=== PATIENT | male | born 1980 | race Caucasian/White ===

== ENCOUNTER 2016-12-19 22:06 | Emergency (ER) | payer SELFPAY ==
[2016-12-19 22:12] VITALS: BP 132/82
--- NOTE | 2016-12-19 22:33 | RAD ---
INDICATION: Right rib injury COMPARISON: None TECHNIQUE: An AP portable view obtained at 2215 hours is submitted. FINDINGS: Bones/Soft Tissues: There is a right lateral fifth rib fracture with mild displacement. Cardiomediastinal: The cardiomediastinal silhouette is normal. Lungs: There are no infiltrates. There is no pneumothorax. Pleura: There are no pleural effusions. Other: None IMPRESSION: RIGHT FIFTH RIB FRACTURE. LUNGS CLEAR
--- NOTE | 2016-12-19 22:53 | RAD ---
INDICATION: Right rib fracture on chest x-ray COMPARISON: Chest x-ray same date TECHNIQUE: Multiple views of the ribs were obtained. FINDINGS: Bones: Detailed rib series again shows a mildly displaced right fifth rib fracture and a probable nondisplaced right sixth rib fracture. LUNGS: The lungs are clear. There is no pneumothorax. Pleural spaces: There is no evidence of hemothorax. Other: None IMPRESSION: RIGHT FIFTH RIB FRACTURE AND POSSIBLE NONDISPLACED RIGHT SIXTH RIB FRACTURE.
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
== END 2016-12-19 22:53 ==
LOC: ED 22:06
DX: S22.31XA Fracture of one rib, right side, initial encounter for closed fracture (principal); F10.129 Alcohol abuse with intoxication, unspecified; V49.9XXA Car occupant (driver) (passenger) injured in unspecified traffic accident, initial encounter; Y93.9 Activity, unspecified; Y92.9 Unspecified place or not applicable; Y99.9 Unspecified external cause status
CPT/HCPCS: 71010; 99283

== ENCOUNTER → 2017-07-05 15:04 | Emergency (ER) | payer OTHER ==
[2017-07-05 15:09] VITALS: BP 128/80
[2017-07-05 15:50] LABS: Urine Bilirubin Negative (Negative); Urine Glucose Negative (Negative); Urine Nitrite Negative (Negative)
[2017-07-05 16:10] LABS: Hematocrit 45 % (42-52); Hemoglobin 15.4 g/dl (14.0-18.0); Mean Corpuscular HGB Conc 34 g/dl (31-36); Mean Corpuscular Hemoglobin 32 pg (27-31); Mean Corpuscular Volume 94 fL (80-94); Mean Platelet Volume 8 um3 (7.4-10.4); Red Blood Count 4.82 10^6/ul (4.0-5.4); Red Cell Distribution Width 14 % (10.5-15); White Blood Count 11.5 10^3/ul (3.5-10.8)
--- NOTE | 2017-07-05 16:10 | RAD ---
Indication: Right wrist injury. 3 views of the wrist demonstrates no fracture. No other bone or joint abnormality is identified. IMPRESSION: NO FRACTURE OF THE WRIST IS NOTED.
[2017-07-05 16:13] LABS: Benzodiazepine Urine Screen None Detected (None Detect)
[2017-07-05 16:19] LABS: ALT 23 U/L (7-52); AST 24 U/L (13-39); Albumin 4.9 g/dL (3.2-5.2); Alkaline Phosphatase 57 U/L (34-104); Anion Gap 8 mmol/L (2-11); BUN/Creatinine Ratio 9.6 (8-20); Blood Urea Nitrogen 7 mg/dL (6-24); CO2 Carbon Dioxide 26 mmol/L (22-32); Calcium 9.7 mg/dL (8.6-10.3); Chloride 105 mmol/L (101-111); EGFR African American 154.6 (>60); EGFR Non-African American 120.2 (>60); Glucose 85 mg/dL (70-100); Potassium 3.9 mmol/L (3.5-5.0); Sodium 139 mmol/L (133-145); Total Protein 7.9 g/dL (6.4-8.9)
[2017-07-05 16:45] LABS: Acetaminophen < 15 mcg/mL; Alcohol 121 mg/dL (<10); Salicylate < 2.50 mg/dL (<30)
[2017-07-05 16:46] LABS: TSH (Thyroid Stimulating Horm) 0.79 mcIU/mL (0.34-5.60)
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
== END | disposition home or self-care (01) ==
LOC: ED 15:04
DX: F43.20 Adjustment disorder, unspecified (principal); F17.210 Nicotine dependence, cigarettes, uncomplicated; F41.9 Anxiety disorder, unspecified; S69.91XA Unspecified injury of right wrist, hand and finger(s), initial encounter; X58.XXXA Exposure to other specified factors, initial encounter; Y92.9 Unspecified place or not applicable
CPT/HCPCS: 36415; 80053; 80307; 80320; 80329; 81003; 84443; 85025; 99285; G0480

== ENCOUNTER 2017-11-28 18:34 | Inpatient (IN) | payer SELFPAY ==
[2017-11-28 19:36] LABS: ABS Basophils 0.1 10^3/ul (0-0.2); ABS Eosinophils 0.3 10^3/ul (0-0.6); ABS Lymphocytes 2.5 10^3/ul (1.0-4.8); ABS Monocytes 0.7 10^3/ul (0-0.8); ABS Neutrophils 8.2 10^3/ul (1.5-7.7); ABS Nucleated RBC 0 10^3/ul; Eosinophil % 2.2 % (0-6); Hematocrit 43 % (42-52); Hemoglobin 14.5 g/dl (14.0-18.0); Lymphocyte % 21.4 % (25-47); Mean Corpuscular HGB Conc 34 g/dl (31-36); Mean Corpuscular Hemoglobin 32 pg (27-31); Mean Corpuscular Volume 93 fL (80-94); Mean Platelet Volume 8 um3 (7.4-10.4); Nucleated Red Blood Cells % 0; Platelet Count 231 10^3/ul (150-450); Red Cell Distribution Width 14 % (10.5-15); White Blood Count 11.9 10^3/ul (3.5-10.8)
[2017-11-28 19:51] LABS: EGFR Non-African American 114.8 (>60)
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
[2017-11-29] MEDS ORDERED: Mouth Piece, Nicotine* 1 EACH CARTRIDGE INH SCH (05:30)
[2017-11-29] MEDS ORDERED: Al Hydrox/Mg Hydrox/Simet LIQ* 30 ML UDC PO PRN (05:30)
[2017-11-29] MEDS ORDERED: clonazePAM TAB(*) 1 MG PO PRN (05:30)
[2017-11-29] MEDS ORDERED: Temazepam CAP* 15 MG PO PRN (05:31)
[2017-11-29] MEDS: Vitamin THERAPEUTIC TAB PO SCH (09:12)
[2017-11-29] MEDS: Venlafaxine EXT RELEASE CAP* 75 MG PO SCH (09:12)
[2017-11-29] MEDS: Nicotine Inhaler* 10 MG AMP INH PRN ×2 (09:15→20:24)
[2017-11-29] MEDS: Nicotine GUM* 2 MG PO PRN ×3 (09:15→20:24)
--- NOTE | 2017-11-29 12:01 | PN ---
MHU: Group Therapy Note - Service Type Service Type: [id number] Group Psychotherapy - Cognitive Behavioral Group Therapy ( CBT):Patient was attentive and participatory in CBT programming this morning, and remained in good behavioral control. Patient expressed positive insights regarding relevant treatment interventions and goals.
[2017-11-29] MEDS: Amphetamine MIXED SALT TAB* 10 MG TAB PO SCH (16:09)
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
[2017-11-29] MEDS: clonazePAM TAB(*) 0.5 MG PO PRN (20:24)
[2017-11-30] MEDS: Nicotine GUM* 2 MG PO PRN ×7 (07:56→23:29)
[2017-11-30] MEDS: Amphetamine MIXED SALT TAB* 10 MG TAB PO SCH ×3 (07:57→15:28)
[2017-11-30] MEDS: Nicotine Inhaler* 10 MG AMP INH PRN ×6 (07:57→23:29)
[2017-11-30] MEDS: Vitamin THERAPEUTIC TAB PO SCH (07:57)
[2017-11-30] MEDS: Venlafaxine EXT RELEASE CAP* 75 MG PO SCH (07:57)
[2017-11-30] MEDS: BuPROPion XL* 150 MG TAB.XL PO SCH (07:57)
[2017-11-30] MEDS: clonazePAM TAB(*) 0.5 MG PO PRN (18:27)
[2017-12-01] MEDS: clonazePAM TAB(*) 0.5 MG PO PRN ×2 (01:55→09:09)
[2017-12-01] MEDS: Nicotine Inhaler* 10 MG AMP INH PRN ×8 (04:07→22:00)
[2017-12-01] MEDS: Nicotine GUM* 2 MG PO PRN ×6 (08:04→18:59)
[2017-12-01] MEDS ORDERED: LORazepam TAB(*) 1 MG PO ONE (08:15)
[2017-12-01] MEDS ORDERED: LORazepam TAB(*) 1 MG ONE (08:18)
[2017-12-01] MEDS: Amphetamine MIXED SALT TAB* 10 MG TAB PO SCH ×3 (08:24→15:50)
[2017-12-01] MEDS: Vitamin THERAPEUTIC TAB PO SCH (08:51)
[2017-12-01] MEDS: Venlafaxine EXT RELEASE CAP* 75 MG PO SCH (08:51)
[2017-12-01] MEDS: BuPROPion XL* 150 MG TAB.XL PO SCH (08:52)
--- NOTE | 2017-12-01 16:42 | PN ---
Subjective - Subjective Date of Service: 12/01/17 Service Type: [id number] Hosp care 15 min low complexity Subjective: Sriram reports that he is doing a lot better today overall. Had difficuly falling asleep last night and doesn't want his 4PM Adderall. Denies SI/HI, delusions or hallucinations. Objective - Appearance Appearance: Healthy Appearing Dysmorphic Features: No Hygiene: Normal Grooming: Well Kept - Behavior Psychomotor Activities: Normal Exhibits Abnormal Movement: No - Attitude and Relatedness Attitude and Relatedness: Appropriate Eye Contact: Good - Speech Quality: Unpressured Latencies: Normal Quantity: Appropriate - Mood Patient's Decription of Mood: "Good" - Affect Observed Affect: Good Affect Consistent with: Euthymia - Thought Process Patient's Thought Process: Coherent, Goal Directed Thought Content: No Passive Wish, No Suicidal Planning, No Homicidal Ideation, No Paranoid Ideation - Sensorium Experiencing Hallucinations: No, Sensorium is Clear Type of Hallucinations: Visual: No, Auditory: No, Command: No - Level of Consciousness Level of Consciousness: Alert Orientation: Yes Intact, Yes Orientated to Time, Yes Orientated to Place, Yes Orientated to Person - Impulse Control Impulse Control: Intact - Insight and Judgement Insight and Judgement: Fair - Group Participation Particating in Group Activities: Yes - Medication Management Medication Management Adherence: Yes Assessment - Assessment Merits Inpatient Hospitalization: Consolidate Improvements, Pending Safe DC Plan Plan - Plan Treatment Plan: Name: SRIRAM EM Birthdate: 1980 [id number] Continued Medication Management: Continue Outpt Medication Medications: Current Medications Acetaminophen (Tylenol Tab*) 650 mg PO Q4H PRN PRN Reason: PAIN or TEMP > 101 F Al Hydrox/Mg Hydrox/Simethicone (Maalox Plus*) 30 ml PO Q4H PRN PRN Reason: INDIGESTION Amphetamine/Dextroamphetamine (Adderall Tab*) 20 mg PO 0800,1200,1600 JALEN Last Admin: 12/01/17 15:50 Dose: 20 mg Bupropion HCl (Wellbutrin Xl *) 150 mg PO 0800 JALEN PRN Reason: Protocol Last Admin: 12/01/17 08:52 Dose: 150 mg Clonazepam (Klonopin Tab(*)) 0.5 mg PO BID PRN PRN Reason: ANXIETY Last Admin: 12/01/17 09:09 Dose: 0.5 mg Device (Nicotine Mouth Piece*) 1 each INH .[facility] Last Admin: 11/29/17 09:15 Dose: 1 each Multivitamins (Theragran Tab*) 1 tab PO DAILY [facility] Last Admin: 12/01/17 08:51 Dose: 1 tab Nicotine (Nicotine Inhaler*) 10 mg INH Q2H PRN PRN Reason: CRAVING Last Admin: 12/01/17 15:50 Dose: 10 mg Nicotine Polacrilex (Nicotine Gum*) 2 mg PO Q2H PRN PRN Reason: CRAVING Last Admin: 12/01/17 15:50 Dose: 2 mg Venlafaxine HCl (Effexor Xr Cap*) 225 mg PO DAILY [facility] Last Admin: 12/01/17 08:51 Dose: 225 mg - Discharge Plan Discharge Plan: Drug/Alcohol Rehab
[2017-12-02] MEDS: Nicotine Inhaler* 10 MG AMP INH PRN ×7 (05:37→22:34)
[2017-12-02] MEDS: clonazePAM TAB(*) 0.5 MG PO PRN ×2 (08:20→14:05)
[2017-12-02] MEDS: Vitamin THERAPEUTIC TAB PO SCH (08:20)
[2017-12-02] MEDS: Acetaminophen TAB* 325 MG PO PRN ×2 (08:21→20:18)
[2017-12-02] MEDS: BuPROPion XL* 150 MG TAB.XL PO SCH (08:21)
[2017-12-02] MEDS: Nicotine GUM* 2 MG PO PRN ×5 (08:25→20:17)
[2017-12-02] MEDS: Venlafaxine EXT RELEASE CAP* 75 MG PO SCH (08:25)
[2017-12-02] MEDS: Amphetamine MIXED SALT TAB* 10 MG TAB PO SCH ×3 (08:25→15:23)
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
--- NOTE | 2017-12-02 11:55 | PN ---
MHU: Group Therapy Note - Service Type Service Type: [id number] Group Psychotherapy - Cognitive Behavioral Group Therapy ( CBT):Patient was attentive and participatory in CBT programming this morning, and remained in good behavioral control. Patient expressed positive insights regarding relevant treatment interventions and goals.
[2017-12-02] MEDS ORDERED: traZODone TAB* 50 MG TAB PO PRN (16:45)
[2017-12-02] MEDS ORDERED: Ibuprofen TAB* 600 MG PO PRN (20:25)
[2017-12-02] MEDS ORDERED: Ibuprofen TAB* 600 MG ONE (21:00)
[2017-12-02] MEDS ORDERED: traZODone TAB* 50 MG TAB PO SCH (21:00)
[2017-12-03] MEDS: Nicotine GUM* 2 MG PO PRN ×2 (08:06→11:18)
[2017-12-03] MEDS: Nicotine Inhaler* 10 MG AMP INH PRN ×2 (08:06→11:18)
[2017-12-03] MEDS: Amphetamine MIXED SALT TAB* 10 MG TAB PO SCH ×2 (08:07→11:18)
[2017-12-03] MEDS: Vitamin THERAPEUTIC TAB PO SCH (08:07)
[2017-12-03] MEDS: BuPROPion XL* 150 MG TAB.XL PO SCH (08:07)
[2017-12-03] MEDS: Venlafaxine EXT RELEASE CAP* 75 MG PO SCH (08:07)
[2017-12-03 08:40] VITALS: BP 118/76
--- NOTE | 2017-12-03 11:17 | DCNOTE ---
Subjective - Subjective Subjective: PATIENT: : AGE: PROVIDER: DATE OF ADMISSION: DATE OF DISCHARGE: DISCHARGE DIAGNOSES: CONDITION AT THE TIME OF DISCHARGE: MENTAL STATUS EXAM AT DISCHARGE: DISCHARGE INSTRUCTIONS: A. MEDICATIONS: B. DIET: C. ACTIVITIES: TOLERATED NICOTINE REPLACEMENT THERAPY WAS OFFERED BUT THE PATIENT DECLINED IT, INDICATING THAT HIS PREFERENCE IS TO CONTINUE SMOOKING FOR THE TIME BEING. DESPITE THIS, HE WAS GIVEN THE [facility] QUITLINE WHICH IS [phone] THERE ARE NO LABORATORY OR DIAGNOSTIC STUDIES PENDING AT THE TIME OF DISCHARGE. D. FOLLOW UP CARE: E. SUBSTANCE ABUSE FOLLOWUP: ATTENDING PSYCHIATRIST HOSPITAL COURSE: PART A. REASON FOR ADMISSION: HOSPITAL COURSE : PART B PSYCHIATRIC TREATMENT RENDERED: GEORGE DE LUNA DO Discharge Planning - Discharge Planning Medications: Current Medications Acetaminophen (Tylenol Tab*) 650 mg PO Q4H PRN PRN Reason: PAIN or TEMP > 101 F Last Admin: 12/02/17 20:18 Dose: 650 mg Al Hydrox/Mg Hydrox/Simethicone (Maalox Plus*) 30 ml PO Q4H PRN PRN Reason: INDIGESTION Amphetamine/Dextroamphetamine (Adderall Tab*) 20 mg PO 0800,1200,1600 [facility] Last Admin: 12/03/17 08:07 Dose: 20 mg Bupropion HCl (Wellbutrin Xl *) 150 mg PO 0800 JALEN PRN Reason: Protocol Last Admin: 12/03/17 08:07 Dose: 150 mg Clonazepam (Klonopin Tab(*)) 0.5 mg PO BID PRN PRN Reason: ANXIETY Last Admin: 12/02/17 14:05 Dose: 0.5 mg Device (Nicotine Mouth Piece*) 1 each INH .[facility] Last Admin: 11/29/17 09:15 Dose: 1 each Ibuprofen (Motrin Tab*) 600 mg PO Q6H PRN PRN Reason: PAIN Multivitamins (Theragran Tab*) 1 tab PO DAILY [facility] Last Admin: 12/03/17 08:07 Dose: 1 tab Nicotine (Nicotine Inhaler*) 10 mg INH Q2H PRN PRN Reason: CRAVING Last Admin: 12/03/17 08:06 Dose: 10 mg Nicotine Polacrilex (Nicotine Gum*) 2 mg PO Q2H PRN PRN Reason: CRAVING Last Admin: 12/03/17 08:06 Dose: 2 mg Trazodone HCl (Desyrel Tab*) 50 mg PO BEDTIME [facility] Last Admin: 12/02/17 20:16 Dose: 50 mg Trazodone HCl (Desyrel Tab*) 50 mg PO .MRX1 PRN PRN Reason: MRX1 1HR OF FIRST DOSE PRN Venlafaxine HCl (Effexor Xr Cap*) 225 mg PO DAILY [facility] Last Admin: 12/03/17 08:07 Dose: 225 mg Discharge Planning: Prescriptions provided for discharge [] Yes [] No Follow up care details as per social work arrangements. Patient response to discharge plan: [] eager for discharge [] agreeable with discharge plan [] ambivalent about discharge [] disagrees with discharge today
--- NOTE | 2017-12-03 12:56 | PN ---
[facility]: Group Therapy Note - Service Type Service Type: [id number] Group Psychotherapy - Cognitive Behavioral Group Therapy ( CBT):Patient was attentive and participatory in CBT programming this morning, and remained in good behavioral control. Patient expressed positive insights regarding relevant treatment interventions and goals.
== END 2017-12-03 12:10 | DRG 897 ==
LOC: ED 18:34 → BSU 11-29 02:51
PROVIDERS: ADMIT Psychiatry & Neurology Psychiatry; ATTEND Psychiatry & Neurology Psychiatry
DX: F10.229 Alcohol dependence with intoxication, unspecified (principal); F11.21 Opioid dependence, in remission; F33.1 Major depressive disorder, recurrent, moderate; Y90.2 Blood alcohol level of 40-59 mg/100 ml; Z91.14 Patient's other noncompliance with medication regimen; F90.2 Attention-deficit hyperactivity disorder, combined type; F81.0 Specific reading disorder
CPT/HCPCS: 36415; 80053; 80320; 80329; 84443; 85025; 90853; 99222; 99231; 99238; A9270-GY; G0480

== ENCOUNTER 2019-01-07 10:39 | Emergency (ER) | payer OTHER ==
--- NOTE | 2019-01-07 11:01 | ED ---
- HPI Summary HPI Summary: Patient is a 38 y/o male presenting to the ED s/p needle stick at 10:00. He was emptying the trash at work when the bag broke and a needle fell on his right thumb. Patient believes it was a long hollow needle, but is unsure what the needle was used for. He doesnt believe there was any blood on the needle. The needle punctured his thumb and he had minimal bleeding. Patient denies cleaning the wound [employer]. He denies any pain. Patient denies any prior hx of infectious diseases such as HIV or hepatitis. He is unsure if his Tetanus or other vaccinations are UTD. 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 Mechanism of Injury: Needle fell out of trash onto his right thumb Needlestick: Hollow Needle Blood on Needle: No Depth of Needlestick: Puncture Bleeding at Site: Yes Body Fluid Exposure: Other - Unknown Treatment [employer]ENTER [employer]: Other - None - Source Information HIV: Unknown Hepatitis: Unknown PMH/Surg Hx/FS Hx/Imm Hx Endocrine/Hematology History: Denies: Hx Anticoagulant Therapy, Hx Diabetes, Hx Thyroid Disease Cardiovascular History: Denies: Hx Congestive Heart Failure, Hx Deep Vein Thrombosis, Hx Hypertension , Hx Myocardial Infarction, Hx Pacemaker/ICD Respiratory History: Denies: Hx Asthma, Hx Chronic Obstructive Pulmonary Disease (COPD), Hx Lung Cancer, Hx Pneumonia, Hx Pulmonary Embolism GI History: Denies: Hx Gall Bladder Disease, Hx Gastrointestinal Bleed, Hx Ulcer, Hx Urosepsis History: Denies: Hx Kidney Stones, Hx Renal Disease Musculoskeletal History: Denies: Hx Scoliosis Sensory History: Denies: Hx Contacts or Glasses, Hx Hearing Aid Opthamlomology History: Denies: Hx Contacts or Glasses Neurological History: Denies: Hx Dementia, Hx Headaches, Hx Migraine, Hx Seizures, Hx Transient Ischemic Attacks (TIA) Psychiatric History: Reports: Hx Anxiety, Hx Depression, Hx Inpatient Treatment , Hx Community Mental Health Tx - sees Dr. Reardon, Hx Suicide Attempt - prior to this admission, Hx of Violent Episodes Against Others, Hx Substance Abuse Denies: Hx Eating Disorder, Hx Schizophrenia, Hx Bipolar Disorder Infectious Disease History: No Infectious Disease History: Denies: Hx Clostridium Difficile, Hx Hepatitis, Hx Human Immunodeficiency Virus (HIV), Hx of Known/Suspected MRSA, Hx Shingles, Hx Tuberculosis, Hx Known/ Suspected VRE, Hx Known/Suspected VRSA, History Other Infectious Disease, Traveled Outside the [place] in Last 30 Days - Family History Known Family History: Negative: Cardiac Disease, Hypertension, Diabetes - Social History Alcohol Use: states that 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 , but reports drinking twice this week Hx Tobacco Use: Yes Smoking Status (MU): Current Every Day Smoker Type: Cigarettes Amount Used/How Often: 1 PPD Review of Systems Negative: Myalgia - R hand Positive: Other - puncture wound with dried blood on right thumb All Other Systems Reviewed And Are Negative: Yes Physical Exam - Summary Physical Exam Summary: Appearance: Well appearing, no pain distress Skin: warm, dry, reflects adequate perfusion, small puncture with dried blood on distal right thumb Head/face: normal Eyes: EOMI, BRANDON ENT: mucous membranes moist Neck: supple, non-tender Respiratory: CTA, breath sounds present Cardiovascular: RRR, pulses symmetrical Abdomen: non-tender, soft Bowel Sounds: present Musculoskeletal: normal, strength/ROM intact Neuro: normal, sensory motor intact, A&Ox3 Triage Information Reviewed: Yes Vital Signs On Initial Exam: Initial Vitals Temp Pulse Resp BP Pulse Ox 98.6 F 84 16 145/84 97 01/07/19 10:47 01/07/19 10:47 01/07/19 10:47 01/07/19 10:47 01/07/19 10:47 Vital Signs Reviewed: Yes Diagnostics - Vital Signs Vital Signs Temp Pulse Resp BP Pulse Ox 01/07/19 10:47 98.6 F 84 16 145/84 97 - Laboratory Lab Statement: Any lab studies that have been ordered have been reviewed, and results considered in the medical decision making process. Needlestick Course/Dx - Course Course Of Treatment: Nurse's notes reviewed. [facility] at [facility] living stuck with a longer length follow bore needle. Likely this was to draw medications. Has been in the garbage for some time making HIV much lesser risk. Patient states he is vaccinated for hepatitis B. Baseline labs were collected. PEP line not available. Patient received counseling and will not receive PEP. He' ll follow-up with occupational medicine. Tetanus was updated. - Diagnoses Provider Diagnoses: Needlestick injury accident Discharge - Sign-Out/Discharge Documenting (check all that apply): Patient Departure - Discharge Patient Received Moderate/Deep Sedation with Procedure: No - Discharge Plan Condition: Improved Disposition: HOME Patient Education Materials: Needle Stick Injuries (ED) Referrals: [facility] [Outside] Additional Instructions: Follow-up with occupational health provider designated by Colbert shemar. Return if worse, new symptoms or other concerns. - Billing Disposition and Condition Condition: IMPROVED Disposition: Home - Attestation Statements Document Initiated by John: Yes Documenting Scribe: Solange Palmer Provider For Whom John is Documenting (Include Credential): Liang Forrest MD Scribe Attestation: Solange Sow, scribed for Liang Forrest MD on 01/07/19 at 1156. Scribe Documentation Reviewed: Yes Provider Attestation: The documentation as recorded by the anaibSolange paz accurately reflects the service I personally performed and the decisions made by Liang shah MD Status of Scribe Document: Viewed
[2019-01-07] MEDS ORDERED: Tetan/Diph/Pertus SYR(Tdap)* 0.5 ML SYR(BOOSTRIX) use SYR IM ONE (11:08)
[2019-01-07 11:36] VITALS: BP 130/81
[2019-01-07 12:13] LABS: Rapid HIV 1 Nonreactive (Nonreactive)
[2019-01-07 12:26] LABS: Hepatitis B Surface AB Immune (Immune)
[2019-01-07 13:03] LABS: Hepatitis C Antibody Nonreactive (Nonreactive)
[2019-01-07 13:05] LABS: Hepatitis B Surface Antigen Nonreactive (Nonreactive)
== END 2019-01-07 11:34 | disposition home or self-care (01) ==
LOC: ED 10:39
DX: S61.031A Puncture wound without foreign body of right thumb without damage to nail, initial encounter (principal); W46.1XXA Contact with contaminated hypodermic needle, initial encounter; Y92.129 Unspecified place in nursing home as the place of occurrence of the external cause; Y99.0 Civilian activity done for income or pay; Z23 Encounter for immunization; F41.9 Anxiety disorder, unspecified; F32.9 Major depressive disorder, single episode, unspecified; F17.210 Nicotine dependence, cigarettes, uncomplicated
CPT/HCPCS: 36415; 86703; 86706; 86803; 87340; 90471; 90715; 99281